=== PATIENT | male | born 1985 | race Caucasian/White ===

== ENCOUNTER 2018-01-26 21:28 | Emergency (ER) | payer BC ==
--- NOTE | 2018-01-26 21:40 | EDM.PDOC ---
ED HPI GENERAL MEDICAL PROBLEM - General Stated Complaint: BAD SUNBURN TO LEGS Time Seen by Provider: 01/26/18 21:40 - History of Present Illness INITIAL COMMENTS - FREE TEXT/NARRATIVE: HISTORY AND PHYSICAL: History of present illness: Patient 33-year-old white male presents with concern of sunburn to his lower extremities he denies any other trauma or concern. Review of systems: As per history of present illness and below otherwise all systems reviewed and negative. Past medical history: As per history of present illness and as reviewed below otherwise noncontributory. Surgical history: As per history of present illness and as reviewed below otherwise noncontributory. Social history: No reported history of drug or alcohol abuse. Family history: As per history of present illness and as reviewed below otherwise noncontributory. Physical exam: HEENT: Atraumatic, normocephalic, pupils reactive, negative for conjunctival pallor or scleral icterus, mucous membranes moist, throat clear, neck supple, nontender, trachea midline. Lungs: Clear to auscultation, breath sounds equal bilaterally, chest nontender. Heart: S1S2, regular, negative for clicks, rubs, or JVD. Abdomen: Soft, nondistended, nontender. Negative for masses or hepatosplenomegaly. Negative for costovertebral tenderness. Pelvis: Stable nontender. Genitourinary: Deferred. Rectal: Deferred. Extremities: Inferior extremities have partial thickness burn anterior aspect bilaterally from his knees down his skin is intact there's small edema this is non-circumferential CMS neurovascular exam is unremarkable Neuro: Awake, alert, oriented. Cranial nerves II through XII unremarkable. Cerebellum unremarkable. Motor and sensory unremarkable throughout. Exam nonfocal. Diagnostics: None Therapeutics: None Impression: #1 sunburn Definitive disposition and diagnosis as appropriate pending reevaluation and review of above. ED ROS GENERAL - Review of Systems Review Of Systems: ROS reveals no pertinent complaints other than HPI. ED EXAM, GENERAL - Physical Exam Exam: See Below (See dictation) Departure - Departure Time of Disposition: 21:39 Disposition: Home, Self-Care 01 Condition: Good Clinical Impression: Sunburn - Discharge Information Referrals: PCP,None [Primary Care Provider] - Additional Instructions: The following information is given to patients seen in the emergency department who are being discharged to home. This information is to outline your options for follow-up care. We provide all patients seen in our emergency department with a follow-up referral. The need for follow-up, as well as the timing and circumstances, are variable depending upon the specifics of your emergency department visit. If you don't have a primary care physician on staff, we will provide you with a referral. We always advise you to contact your personal physician following an emergency department visit to inform them of the circumstance of the visit and for follow-up with them and/or the need for any referrals to a consulting specialist. The emergency department will also refer you to a specialist when appropriate. This referral assures that you have the opportunity for followup care with a specialist. All of these measure are taken in an effort to provide you with optimal care, which includes your followup. Under all circumstances we always encourage you to contact your private physician who remains a resource for coordinating your care. When calling for followup care, please make the office aware that this follow-up is from your recent emergency room visit. If for any reason you are refused follow-up, please contact the [facility] emergency department at and asked to speak to the emergency department charge nurse. [facility] [address] [place] [id number] Motrin/Tylenol directed off work 48 hours follow-up private medical doctor and/ or clinic as needed as discussed and return as needed as discussed
== END 2018-01-26 22:01 | disposition home or self-care (01) ==
LOC: MW.ED 21:28
DX: L55.9 Sunburn, unspecified (principal)
CPT/HCPCS: 99281; 99282

== ENCOUNTER 2019-02-06 16:05 | Emergency (ER) | payer BC ==
--- NOTE | 2019-02-06 16:21 | EDM.PDOC ---
ED HPI GENERAL MEDICAL PROBLEM - General Chief Complaint: General Stated Complaint: ABCESSED TOOTH Time Seen by Provider: 02/06/19 16:21 Source of Information: Reports: Patient - History of Present Illness INITIAL COMMENTS - FREE TEXT/NARRATIVE: HISTORY AND PHYSICAL: History of present illness: [Patient presents with dental pain left upper retromolar, or dentition in general noted, does have some mild to moderate swelling associated around the dentition consistent with early abscess formation No fever nausea vomiting chills sweats no muffled voice drooling or trismus Patient has dentist appointment scheduled for Saturday of next week Review of systems: As per history of present illness and below otherwise all systems reviewed and negative. Past medical history: As per history of present illness and as reviewed below otherwise noncontributory. Surgical history: As per history of present illness and as reviewed below otherwise noncontributory. Social history: No reported history of drug or alcohol abuse. Family history: As per history of present illness and as reviewed below otherwise noncontributory. Physical exam: HEENT: Atraumatic, normocephalic, pupils reactive, negative for conjunctival pallor or scleral icterus, mucous membranes moist, throat clear, neck supple, nontender, trachea midline. Poor dentition noted throughout Lungs: Clear to auscultation, breath sounds equal bilaterally, chest nontender. Heart: S1S2, regular, negative for clicks, rubs, or JVD. Abdomen: Soft, nondistended, nontender. Negative for masses or hepatosplenomegaly. Negative for costovertebral tenderness. Pelvis: Stable nontender. Genitourinary: Deferred. Rectal: Deferred. Extremities: Atraumatic, negative for cords or calf pain. Neurovascular unremarkable. Neuro: Awake, alert, oriented. Cranial nerves II through XII unremarkable. Cerebellum unremarkable. Motor and sensory unremarkable throughout. Exam nonfocal. Diagnostics: [Clinical ] Therapeutics: [Cleocin Dental balls Toradol impression: [ dental abscess ] Definitive disposition and diagnosis as appropriate pending reevaluation and review of above. - Related Data Allergies Allergy/AdvReac Type Severity Reaction Status Date / Time cephalexin [From Keflex] Allergy Anaphylactic Verified 02/06/19 16:26 Shock Home Meds: Home Meds . [No Known Home Meds] 02/06/19 [History] Past Medical History - Past Health History Medical/Surgical History: Denies Medical/Surgical History Social & Family History - Family History Family Medical History: Noncontributory ED ROS GENERAL - Review of Systems Review Of Systems: See Below ED EXAM, GENERAL - Physical Exam Exam: See Below Course - Orders/Labs/Meds Meds: Medications Discontinued Medications Generic Name Dose Route Start Last Admin Trade Name Kody PRN Reason Stop Dose Admin Benzocaine 2 each 02/06/19 16:26 Hurricaine One 20% MUCMEM 02/06/19 16:27 ONETIME ONE Lidocaine HCl 15 ml 02/06/19 16:26 Xylocaine 2% Viscous PO 02/06/19 16:27 ONETIME ONE Departure - Departure Time of Disposition: 16:29 Disposition: Home, Self-Care 01 Condition: Good Clinical Impression: Dental abscess - Discharge Information Referrals: PCP,None [Primary Care Provider] - Forms: ED Department Discharge Additional Instructions: The following information is given to patients seen in the emergency department who are being discharged to home. This information is to outline your options for follow-up care. We provide all patients seen in our emergency department with a follow-up referral. The need for follow-up, as well as the timing and circumstances, are variable depending upon the specifics of your emergency department visit. If you don't have a primary care physician on staff, we will provide you with a referral. We always advise you to contact your personal physician following an emergency department visit to inform them of the circumstance of the visit and for follow-up with them and/or the need for any referrals to a consulting specialist. The emergency department will also refer you to a specialist when appropriate. This referral assures that you have the opportunity for follow-up care with a specialist. All of these measure are taken in an effort to provide you with optimal care, which includes your follow-up. Under all circumstances we always encourage you to contact your private physician who remains a resource for coordinating your care. When calling for follow-up care, please make the office aware that this follow-up is from your recent emergency room visit. If for any reason you are refused follow-up, please contact the [facility] emergency department at and asked to speak to the emergency department charge nurse.
[2019-02-06] MEDS ORDERED: Lidocaine 2% Viscous Solution 15 ML Cup PO ONE (16:26)
[2019-02-06] MEDS ORDERED: Benzocaine 20% Topical Spray UD MUCMEM ONE (16:26)
== END 2019-02-06 16:45 | disposition home or self-care (01) ==
LOC: MW.ED 16:05
DX: K04.7 Periapical abscess without sinus (principal); Z88.1 Allergy status to other antibiotic agents
CPT/HCPCS: 99282; A9270; 99283

== ENCOUNTER 2019-05-28 01:31 | Emergency (ER) | payer BC ==
[2019-05-28] MEDS ORDERED: Tetracaine HCl/PF 0.5% 4 ML Bottle EYEBOTH ONE (01:55)
[2019-05-28] MEDS ORDERED: Ketorolac 60 MG/2 ML SDV IM ONE (01:56)
[2019-05-28] MEDS ORDERED: Ibuprofen 800 MG Tab PO ONE (02:03)
--- NOTE | 2019-05-28 02:03 | EDM.PDOC ---
ED HPI GENERAL MEDICAL PROBLEM - General Chief Complaint: Headache Stated Complaint: PERSISTENT HEADACHE FOR 8 DAYS Time Seen by Provider: 05/28/19 01:40 - History of Present Illness INITIAL COMMENTS - FREE TEXT/NARRATIVE: HISTORY AND PHYSICAL: History of present illness: The patient is a 34-year-old man who presents with complaints of a headache on the left side of his head that starts in his for head and behind his eye and then radiates to the back of his head that has been constant for the last 6 days. He says it started gradually and seems to wax and wane in intensity but is never gone. He has no recent trauma and does not wear glasses or contact lenses. He's had no nausea or vomiting no abdominal pain no chest pain or shortness of breath and he has had some nasal drainage but nothing that he thought was significant nor did he take any [id number] antihistamines. The patient has tried ibuprofen over the last 6 days but his last dose was 2 days ago he says he does not like to take pills. He doesn't have any blurred vision and no neurosensory changes or weakness in his extremities and no neck or back pain. He says he gets headaches once in a while but he is concerned because this has been more consistent and persistent. He has not had any fevers chills coughing and has been eating and drinking normally. The patient says his eyeball itself on the left does not hurt but he feels that there is pressure behind it and in his for head. He has no ear or throat pain. Patient denies any dental pain or swelling of his gums. Review of systems: As per history of present illness and below otherwise all systems reviewed and negative. Past medical history: As per history of present illness and as reviewed below otherwise noncontributory. Surgical history: As per history of present illness and as reviewed below otherwise noncontributory. Social history: No reported history of drug or alcohol abuse. Family history: As per history of present illness and as reviewed below otherwise noncontributory. Physical exam: General: Well-developed well-nourished man who is nontoxic and moves easily in the ED without distress. HEENT: Atraumatic, normocephalic, pupils reactive, left sclera is slightly injected but is not grossly erythematous, EOMs are intact, there is no sinus tenderness or scalp tenderness, negative for conjunctival pallor or scleral icterus, mucous membranes moist, throat clear, neck supple, nontender, trachea midline. TMs are dulled bilaterally and difficult to see due to impacted cerumen , there is no gross engorgement of the turbinates nor any sinus tenderness, there is no TMJ or temporal artery tenderness, there is some mild tenderness of the cervical paraspinals on the left side but no occipital groove tenderness on palpation. There is no cervical adenopathy or nuchal rigidity Lungs: Clear to auscultation, breath sounds equal bilaterally, chest nontender. Heart: S1S2, regular, negative for clicks, rubs, or JVD. Abdomen: Soft, nondistended, nontender. Negative for masses or hepatosplenomegaly. Negative for costovertebral tenderness. Pelvis: Stable nontender. Genitourinary: Deferred. Rectal: Deferred. Extremities: Atraumatic, negative for cords or calf pain. Neurovascular unremarkable. Neuro: Awake, alert, oriented. Cranial nerves II through XII unremarkable. Cerebellum unremarkable. Motor and sensory unremarkable throughout. Exam nonfocal. Diagnostics: CBC CMP sedimentation rate CRP CT scan of the head, visual acuity IOP please see below procedure note Visual acuity per nursing was 20/30 in the right eye 20/20 in the left eye and 20/20 in both eyes Therapeutics: Tetracaine for intraocular pressure, Toradol was ordered but patient does not want a shot so ibuprofen was given Procedure note: After tetracaine was instilled by nursing procedure was explained to the patient and intraocular pressure was measured in both eyes. The pressure and the unaffected right eye is 13 and the pressure in the affected left eye was also 13. There were no complications and the patient tolerated the procedure well Patient says his headache is mildly improved and he is aware of all testing results. I've advised that he needs to call and follow-up with our director of estate for formal eye exam and also with primary care to investigate these headaches a bit more and to get advice for treatment going forward. Impression: Persistent headache Definitive disposition and diagnosis as appropriate pending reevaluation and review of above. headache Pain Score (Numeric/FACES): 8 - Related Data Allergies Allergy/AdvReac Type Severity Reaction Status Date / Time cephalexin [From Keflex] Allergy Anaphylactic Verified 05/28/19 01:42 Shock Home Meds: Home Meds . [No Known Home Meds] 02/06/19 [History] Past Medical History - Past Health History Medical/Surgical History: Denies Medical/Surgical History HEENT History: Reports: None Cardiovascular History: Reports: None Respiratory History: Reports: None Gastrointestinal History: Reports: None Genitourinary History: Reports: None Musculoskeletal History: Reports: None Neurological History: Reports: None Psychiatric History: Reports: None Endocrine/Metabolic History: Reports: None Insulin Pump Model and Animal Shelter Manager: None Hematologic History: Reports: None Immunologic History: Reports: None Oncologic (Cancer) History: Reports: None Dermatologic History: Reports: None - Infectious Disease History Infectious Disease History: Reports: None - Past Surgical History GI Surgical History: Reports: Appendectomy Male Surgical History: Reports: None Musculoskeletal Surgical History: Reports: Other (See Below) Other Musculoskeletal Surgeries/Procedures:: R tibia surgery Social & Family History - Family History Family Medical History: Noncontributory - Tobacco Use Smoking Status *Q: Current Every Day Smoker Years of Tobacco use: 20 Packs/Tins Daily: 0.5 - Caffeine Use Caffeine Use: Reports: Coffee, Soda - Recreational Drug Use Recreational Drug Use: No ED ROS GENERAL - Review of Systems Review Of Systems: ROS reveals no pertinent complaints other than HPI. ED EXAM, GENERAL - Physical Exam Exam: See Below (See dictation) Course - Vital Signs Last Recorded V/S: Last Vital Signs Temp 36.1 C 05/28/19 01:42 Pulse 78 05/28/19 01:42 Resp 18 05/28/19 01:42 BP 116/75 05/28/19 01:42 Pulse Ox 98 05/28/19 01:42 - Orders/Labs/Meds Orders: Active Orders 24 hr Category Date Time Status Communication Order [RC] STAT Care 05/28/19 01:43 Active Labs: Laboratory Tests 05/28/19 05/28/19 Range/Units 02:05 02:05 WBC 8.68 (4.0-11.0) K/uL RBC 5.02 (4.50-5.90) M/uL Hgb 15.8 (13.0-17.0) g/dL Hct 44.6 (38.0-50.0) % MCV 88.8 (80.0-98.0) fL MCH 31.5 (27.0-32.0) pg MCHC 35.4 (31.0-37.0) g/dL RDW Std Deviation 39.5 (28.0-62.0) fl RDW Coeff of Joseluis 12 (11.0-15.0) % Plt Count 181 (150-400) K/uL MPV 9.80 (7.40-12.00) fL Neut % (Auto) 60.2 (48.0-80.0) % Lymph % (Auto) 25.1 (16.0-40.0) % Parke % (Auto) 10.9 (0.0-15.0) % Eos % (Auto) 3.7 (0.0-7.0) % Baso % (Auto) 0.1 (0.0-1.5) % Neut # (Auto) 5.2 (1.4-5.7) K/uL Lymph # (Auto) 2.2 (0.6-2.4) K/uL Parke # (Auto) 1.0 H (0.0-0.8) K/uL Eos # (Auto) 0.3 (0.0-0.7) K/uL Baso # (Auto) 0.0 (0.0-0.1) K/uL Nucleated RBC % 0.0 /100WBC Nucleated RBCs # 0 K/uL ESR 1 (0-14) mm/hr Sodium 140 (136-148) mmol/L Potassium 3.5 (3.5-5.1) mmol/L Chloride 104 (98-107) mmol/L Carbon Dioxide 26.4 (21.0-32.0) mmol/L BUN 17 (7.0-18.0) mg/dL Creatinine 1.2 (0.8-1.3) mg/dL Est Cr Clr Drug Dosing 90.71 mL/min Estimated GFR (MDRD) > 60.0 ml/min Glucose 127 H (74-106) mg/dL Calcium 8.7 (8.5-10.1) mg/dL Total Bilirubin 0.5 (0.2-1.0) mg/dL AST 27 (15-37) IU/L ALT 28 (14-63) IU/L Alkaline Phosphatase 75 (46-116) U/L C-Reactive Protein < 0.20 (0.00-0.90) mg/dL Total Protein 7.3 (6.4-8.2) g/dL Albumin 4.0 (3.4-5.0) g/dL Globulin 3.3 (2.6-4.0) g/dL Albumin/Globulin Ratio 1.2 (0.9-1.6) Meds: Medications Discontinued Medications Generic Name Dose Route Start Last Admin Trade Name Kody PRN Reason Stop Dose Admin Ibuprofen 800 mg 05/28/19 02:03 05/28/19 02:12 Motrin PO 05/28/19 02:04 800 mg ONETIME ONE Administration Ketorolac Tromethamine 60 mg 05/28/19 01:56 05/28/19 02:13 Toradol IM 05/28/19 01:57 Not Given ONETIME ONE Tetracaine HCl 1 ml 05/28/19 01:55 05/28/19 02:15 Tetracaine 0.5% Steri-Unit Lillian EYEBOTH 05/28/19 01:56 1 ml ASDIRECTED ONE Administration Departure - Departure Time of Disposition: 02:58 Disposition: Home, Self-Care 01 Condition: Good Clinical Impression: New daily persistent headache - Discharge Information Referrals: PCP,None [Primary Care Provider] - Forms: ED Department Discharge Additional Instructions: The following information is given to patients seen in the emergency department who are being discharged to home. This information is to outline your options for follow-up care. We provide all patients seen in our emergency department with a follow-up referral. The need for follow-up, as well as the timing and circumstances, are variable depending upon the specifics of your emergency department visit. If you don't have a primary care physician on staff, we will provide you with a referral. We always advise you to contact your personal physician following an emergency department visit to inform them of the circumstance of the visit and for follow-up with them and/or the need for any referrals to a consulting specialist. The emergency department will also refer you to a specialist when appropriate. This referral assures that you have the opportunity for followup care with a specialist. All of these measure are taken in an effort to provide you with optimal care, which includes your followup. Under all circumstances we always encourage you to contact your private physician who remains a resource for coordinating your care. When calling for followup care, please make the office aware that this follow-up is from your recent emergency room visit. If for any reason you are refused follow-up, please contact the [facility] emergency department at and ask to speak to the emergency department charge nurse. [facility]--ophthalmology [address] [place] [address] [facility] Primary care- Internal Medicine and Family [place] [id number] [place] [id number] Please call and connect with primary care as well as our ophthalmology clinic for appointments for follow-up trying to get in with the director of estate before the end of the week. Use [id number] ibuprofen 800 mg every 8 hours. Add [id number] Tylenol as he choose for your headache pain. Apply a sore heat to your neck in the muscles of the back of your head for symptomatic relief. Use the tramadol/Voltaren you have been given from [facility] Meds only when you're at home to help rest. Try to start keeping a headache journal writing down when the headache is worse when it is better and circumstances around that touches time of day or other stressors. Return to ER as needed and as discussed - My Orders Last 24 Hours: My Active Orders 05/28/19 01:43 Communication Order [RC] STAT - Assessment/Plan Last 24 Hours: My Active Orders 05/28/19 01:43 Communication Order [RC] STAT
--- NOTE | 2019-05-28 02:23 | CT ---
INDICATION: Left retro ocular headache for about a week TECHNIQUE: CT head without contrast. COMPARISON: None FINDINGS: CSF spaces: Within normal limits for age. Brain parenchyma: The nair-white differentiation is normal. No sign of mass, hemorrhage, or midline shift. Skull base and calvarium: The visualized paranasal sinuses and mastoid air cells demonstrate no acute or significant findings. The visualized orbits are grossly unremarkable. No skull fractures. IMPRESSION: Unremarkable noncontrast head CT. Please note that all CT scans at this facility use dose modulation, iterative reconstruction, and/or weight-based dosing when appropriate to reduce radiation dose to as low as reasonably achievable. Dictated by Oksana Koo MD @ May 28 2019 2:21AM Signed by Dr. Oksana Koo @ May 28 2019 2:22AM
[2019-05-28 02:31] LABS: BLOOD UREA NITROGEN,BUN 17 mg/dL (7.0-18.0); CARBON DIOXIDE,CO2 26.4 mmol/L (21.0-32.0); CHLORIDE,CL 104 mmol/L (98-107); GLUCOSE RANDOM 127 mg/dL (74-106); POTASSIUM,K 3.5 mmol/L (3.5-5.1); SODIUM,NA 140 mmol/L (136-148)
== END 2019-05-28 03:09 | disposition home or self-care (01) ==
LOC: MW.ED 01:31
DX: R51 Headache (principal); F17.210 Nicotine dependence, cigarettes, uncomplicated; Z88.1 Allergy status to other antibiotic agents
CPT/HCPCS: 36415; 70450; 80053; 85025; 85652; 86140; 99284; A9270

== ENCOUNTER 2020-11-30 07:58 | Emergency (ER) | payer BC, OTHER ==
--- NOTE | 2020-11-30 08:20 | EDM.PDOC ---
ED HPI GENERAL MEDICAL PROBLEM - General Chief Complaint: Laceration Stated Complaint: LEFT WRIST INJURY Time Seen by Provider: 11/30/20 08:11 Source of Information: Reports: Patient History Limitations: Reports: No Limitations - History of Present Illness INITIAL COMMENTS - FREE TEXT/NARRATIVE: Patient is a 35-year-old male who presents today for laceration to his left wrist. Patient is he was working with a will at work when it lost off his tractor and cut his wrist. Patient states no fragments or loss from will. Patient is able to move his wrist completely has no numbness weakness to his hand. Patient states there were some bleeding that since pain control. Patient dates that he is feeling, woozy at the scene out of blood pressure feels back to baseline currently. laceration leftwrist Pain Score (Numeric/FACES): 7 - Related Data Allergies Allergy/AdvReac Type Severity Reaction Status Date / Time cephalexin [From Keflex] Allergy Anaphylactic Verified 05/28/19 01:42 Shock Home Meds: Home Meds . 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 Hematologic History: Reports: None Immunologic History: Reports: None Oncologic (Cancer) History: Reports: None Dermatologic History: Reports: None - Infectious Disease History Infectious Disease History: Reports: None - Past Surgical History GI Surgical History: Reports: Appendectomy Male Surgical History: Reports: None Musculoskeletal Surgical History: Reports: Other (See Below) Other Musculoskeletal Surgeries/Procedures:: R tibia surgery Social & Family History - Family History Family Medical History: No Pertinent Family History - Caffeine Use Caffeine Use: Reports: Coffee, Soda ED ROS GENERAL - Review of Systems Review Of Systems: See Below Constitutional: Reports: No Symptoms HEENT: Reports: No Symptoms Respiratory: Reports: No Symptoms Cardiovascular: Reports: No Symptoms Endocrine: Reports: No Symptoms GI/Abdominal: Reports: No Symptoms : Reports: No Symptoms Musculoskeletal: Reports: No Symptoms Skin: Reports: Other (laceration) Neurological: Reports: No Symptoms Psychiatric: Reports: No Symptoms Hematologic/Lymphatic: Reports: No Symptoms Immunologic: Reports: No Symptoms ED EXAM, SKIN/RASH Exam: See Below Exam Limited By: No Limitations General Appearance: Alert, WD/WN Head: Atraumatic, Normocephalic Respiratory/Chest: No Respiratory Distress, Lungs Clear Cardiovascular: Normal Peripheral Pulses, Regular Rate, Rhythm Peripheral Pulses: 2+: Radial (L), Radial (R) Extremities: Normal Range of Motion, Non-Tender, Other (3cm lac to left wrist volar side) Neurological: Alert, Oriented, Normal Cognition, Normal Gait ED SKIN PROCEDURES - Laceration/Wound Repair Left Wrist Appearance: Superficial Distal NVT: Neuro & Vascular Intact Anesthetic Type: Local Local Anesthesia - Lidocaine (Xylocaine): 1% Plain Local Anesthetic Volume: 4cc Skin Prep: Chlorhexidine (Hibiciens) Saline Irrigation (cc's): 1,000 Closed with: Sutures Lac/Wound length In cm: 3 Suture Size: 4-0 Sterile Dressing Applied: Provider Tetanus Status Addressed: Yes Course - Vital Signs Last Recorded V/S: Last Vital Signs Temp 96 F L 11/30/20 08:17 Pulse 98 11/30/20 08:17 Resp 16 11/30/20 08:17 BP 98/44 L 11/30/20 08:17 Pulse Ox 97 11/30/20 08:17 - Orders/Labs/Meds Meds: Medications Discontinued Medications Generic Name Dose Route Start Last Admin Trade Name Kody PRN Reason Stop Dose Admin Lidocaine HCl 5 ml 11/30/20 08:17 11/30/20 08:26 Lidocaine 1% 5 Ml Sdv INJECT 11/30/20 08:18 5 ml ONETIME ONE Administration Departure - Departure Time of Disposition: 09:37 Disposition: Home, Self-Care 01 Condition: Good Clinical Impression: Laceration of wrist - Discharge Information *PRESCRIPTION DRUG MONITORING PROGRAM REVIEWED*: Not Applicable *COPY OF PRESCRIPTION DRUG MONITORING REPORT IN PATIENT PARTHA: Not Applicable Instructions: Laceration Care, Adult, [id number] Referrals: PCP,None [Primary Care Provider] - Forms: ED Department Discharge Additional Instructions: The following information is given to patients seen in the emergency department who are being discharged to home. This information is to outline your options for follow-up care. We provide all patients seen in our emergency department with a follow-up referral. The need for follow-up, as well as the timing and circumstances, are variable depending upon the specifics of your emergency department visit. If you don't have a primary care physician on staff, we will provide you with a referral. We always advise you to contact your personal physician following an emergency department visit to inform them of the circumstance of the visit and for follow-up with them and/or the need for any referrals to a consulting specialist. The emergency department will also refer you to a specialist when appropriate. This referral assures that you have the opportunity for follow-up care with a specialist. All of these measure are taken in an effort to provide you with optimal care, which includes your follow-up. Under all circumstances we always encourage you to contact your private physician who remains a resource for coordinating your care. When calling for follow-up care, please make the office aware that this follow-up is from your recent emergency room visit. If for any reason you are refused follow-up, please contact the [facility] Emergency Department at and asked to speak to the emergency department charge nurse. Please follow up with your primary care physician. If you do not have a primary care physician, see below: [facility] [address] [place] [id number] [facility] [address] [place] [id number] You are seen today for laceration to your left wrist. We repaired the laceration with sutures. Recommend you follow-up in the next 7 to 10 days to have the sutures removed. Follow-up your primary care physician. If you cannot find anyone to remove them you can come to the ER to have the sutures removed. Recheck information about how to care for the sutures. If you have any redness drainage to the area please return to the ED immediately. Sepsis Event Note (ED) - Focused Exam Vital Signs: Vital Signs Temp Pulse Resp BP Pulse Ox 11/30/20 08:17 96 F L 98 16 98/44 L 97 - Assessment/Plan Plan: Patient is a 35-year-old male presents today for laceration to his left wrist. Will repair lacerations with sutures and reassess patient.
[2020-11-30] MEDS ORDERED: Bacitracin Oint 1 GM U/D Packet TOP ONE (10:00)
== END 2020-11-30 10:08 | disposition home or self-care (01) ==
LOC: MW.ED 07:58
DX: S61.512A Laceration without foreign body of left wrist, initial encounter (principal); Z88.1 Allergy status to other antibiotic agents; W26.8XXA Contact with other sharp object(s), not elsewhere classified, initial encounter; Y99.0 Civilian activity done for income or pay
CPT/HCPCS: 12002; 99282; 99282-25

== ENCOUNTER 2021-06-11 18:48 | Emergency (ER) | payer OTHER ==
--- NOTE | 2021-06-11 20:35 | EDM.PDOC ---
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 The patient states that his MRI states that 10 T10-T12 has degenerative disc disease. He states that his lumbar MRI showed some bulging disc. The patient is concerned that there has been more injury. While sitting on the cot the patient states that his left mid dorsum foot was numb. Patient denies any fever, chills, headache, change in vision, s yncope or near syncope. Denies any chest pain, shortness of breath or cough. Denies any abdominal pain, nausea, vomiting, diarrhea, constipation or dysuria. Has not noted any blood in urine or stool. Patient has been eating and drinking appropriately. Review of systems: As per history of present illness and below otherwise all systems reviewed and negative. Past medical history: As per history of present illness and as reviewed below otherwise noncontributory. Surgical history: As per history of present illness and as reviewed below otherwise noncontributory. Social history: See social history for further information Family history: As per history of present illness and as reviewed below otherwise noncontributory. Physical exam: General: Well developed and well nourished. Alert and orientated x 3. Nontoxic in appearance and in no acute distress. Vital signs are stable and have been reviewed by me. Nursing notes were reviewed. HEENT: Atraumatic, normocephalic, pupils equal and reactive bilaterally, negative for conjunctival pallor or scleral icterus, mucous membranes moist, TMs normal bilaterally, throat clear, neck supple, nontender, trachea midline. No drooling or trismus noted. No meningeal signs. No hot potato voice noted. Lungs: Clear to auscultation bilaterally. No wheezes, rales, or rhonchi. Chest nontender. Normal work of breathing, no accessory muscles used. Heart: S1S2, regular rate and rhythm without overt murmur, gallops, or rubs. No JVD. No peripheral edema Abdomen: Soft, nondistended, nontender. Normoactive bowel sounds. Negative for masses or costovertebral tenderness. Skin: Intact, warm, dry. No lesions or rashes noted. Hematologic: No petechiae or purpra. Mucosa appropriate color and normal nail bed color and refill. Extremities: Atraumatic, moves all extremities per self without difficulty or deficits, negative for cords or calf pain. Neurovascular unremarkable. Back exam: Neck and back have no deformities, external skin changes, or signs of trauma. Curvature of the cervical, thoracic, and lumbar spine are within normal limits. Bony features of the shoulders and hips are of equal height bilaterally. Tenderness is noted on palpation of the lower lumbar spinous processes.Straight leg raise test is negative bilaterally. No clonus is noted. 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 Dorsi/plantar flexion is normal bilaterally. Neuro: Awake, alert, oriented. Cranial nerves II through XII unremarkable. Cerebellum unremarkable. Motor and sensory unremarkable throughout. Exam nonfocal. Psychiatric: Mood and affect are appropriate. Normal thought process. Answering questions appropriately. Notes: *This patient was seen and evaluated during the 2019 SARS-CoV-2 novel coronavirus pandemic period. Community viral transmission is ongoing at time of this encounter and the emergency department is operating under pandemic response procedures. Stated above the patient is a 36-year-old male with a history of chronic back pain with a history of degenerative disease and bulging disc. The patient was bending over today and started experiencing some extreme low back pain. The patient is requesting an x-ray to ensure there is nothing else wrong. I have ordered an x-ray. Lumbar x-ray Impression 1 mild L4/L5 degenerative disc disease. 2 possible L5 pars defects. This is much like his MRI done previously. I have informed the patient and instructed that he need to follow-up with his orthopedic surgeon. I have prescribed Valium 5 mg 3 times daily as needed for muscle spasms for 5 days. I have also prescribed prednisone 60 mg daily for 5 days. I have talked with the patient about today's findings, in addition to providing specific details for plan of care. Reassessment at the time of disposition demonstrates that the patient is in no acute distress. The patient is stable for discharge, counseling was provided and we discussed in great detail signs and symptoms that would prompt them to return to the Emergency Department. Medication, follow up and supportive care measures were reviewed and discussed. Voices understanding and is agreeable to plan of care. Denies any further questions or concerns at this time. Diagnostics: Lumbar x-ray Therapeutics: Valium 5 mg, prednisone 60 mg Prescription: Valium 5 mg p.o. 3 times daily for 5 days, prednisone 60 mg p.o. for 5 days Impression: Lumbar back pain Plan: 1. You were evaluated today on an emergent basis. Your plaints of lower back pain that became worse today after bending over was evaluated with an lower back x-ray which did not show any changes from your previous MRI. You need to follow-up with your orthopedic surgeon, primary care and pain physician. For today's purposes I have prescribed you Valium 5 mg by mouth 3 times a day as needed for muscle spasms for 5 days. I have also prescribed you prednisone which is a steroid 60 mg daily for 5 days. This should help alleviate the large majority of your pain. 2. You can alternate Tylenol and ibuprofen as needed for pain and fever management. 3. We encourage you to follow up with your primary care provider and/or recommended specialist in the next few days for re-evaluation and further care/ management. 4. If your symptoms should worsen, new symptoms develop or any of the signs and symptoms we discussed should arise please return to the emergency room or call 911 (if needed). Definitive disposition and diagnosis as appropriate pending reevaluation and review of above. Back Pain Score (Numeric/FACES): 9 - Related Data Allergies Allergy/AdvReac Type Severity Reaction Status Date / Time cephalexin [From Keflex] Allergy Anaphylactic Verified 05/28/19 01:42 Shock Home Meds: Home Meds diazePAM [Valium] 5 mg PO TID PRN 5 Days #15 tablet 06/11/21 [Rx] predniSONE [Prednisone] 60 mg PO DAILY 5 Days #15 tablet 06/11/21 [Rx] Past Medical History - Past Health History Medical/Surgical History: Denies Medical/Surgical History HEENT History: Reports: None Cardiovascular History: Reports: None Respiratory History: Reports: None Gastrointestinal History: Reports: None Genitourinary History: Reports: None Musculoskeletal History: Reports: None Neurological History: Reports: None Psychiatric History: Reports: None Endocrine/Metabolic History: Reports: None 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 Hematologic History: Reports: None Immunologic History: Reports: None Oncologic (Cancer) History: Reports: None Dermatologic History: Reports: None - Infectious Disease History Infectious Disease History: Reports: None - Past Surgical History GI Surgical History: Reports: Appendectomy Male Surgical History: Reports: None Musculoskeletal Surgical History: Reports: Other (See Below) Other Musculoskeletal Surgeries/Procedures:: R tibia surgery Social & Family History - Family History Family Medical History: No Pertinent Family History - Tobacco Use Second Hand Smoke Exposure: No - Caffeine Use Caffeine Use: Reports: None - Recreational Drug Use Recreational Drug Use: No ED ROS GENERAL - Review of Systems Review Of Systems: Comprehensive ROS is negative, except as noted in HPI. ED EXAM,LOWER BACK PAIN/INJURY - Physical Exam Exam: See Below (See dictation) Course - Vital Signs Last Recorded V/S: Last Vital Signs Temp 98.1 F 06/11/21 19:30 Pulse 72 06/11/21 22:00 Resp 18 06/11/21 22:00 BP 110/60 06/11/21 22:00 Pulse Ox 97 06/11/21 22:00 - Orders/Labs/Meds Meds: Medications Discontinued Medications Generic Name Dose Route Start Last Admin Trade Name Freq PRN Reason Stop Dose Admin Diazepam 5 mg 06/11/21 21:37 06/11/21 21:58 Diazepam 5 Mg Tab PO 06/11/21 21:38 5 mg ONETIME ONE Administration Prednisone 60 mg 06/11/21 21:37 06/11/21 21:58 Prednisone 20 Mg Tab PO 06/11/21 21:38 60 mg ONETIME ONE Administration Departure - Departure Time of Disposition: 21:43 Disposition: Home, Self-Care 01 Condition: Good Clinical Impression: Lumbar back pain - Discharge Information *PRESCRIPTION DRUG MONITORING PROGRAM REVIEWED*: Not Applicable *COPY OF PRESCRIPTION DRUG MONITORING REPORT IN PATIENT PARTHA: Not Applicable Prescriptions: predniSONE [Prednisone] 60 mg PO DAILY 5 Days #15 tablet diazePAM [Valium] 5 mg PO TID PRN 5 Days #15 tablet PRN Reason: Spasms Instructions: Chronic Back Pain, [id number] Referrals: Jordy De Jesus MD [Primary Care Provider] - Forms: ED Department Discharge Additional Instructions: The following information is given to patients seen in the emergency department who are being discharged to home. This information is to outline your options for follow-up care. We provide all patients seen in our emergency department with a follow-up referral. The need for follow-up, as well as the timing and circumstances, are variable depending upon the specifics of your emergency department visit. If you don't have a primary care physician on staff, we will provide you with a referral. We always advise you to contact your personal physician following an emergency department visit to inform them of the circumstance of the visit and for follow-up with them and/or the need for any referrals to a consulting specialist. The emergency department will also refer you to a specialist when appropriate. This referral assures that you have the opportunity for follow-up care with a specialist. All of these measure are taken in an effort to provide you with optimal care, which includes your follow-up. Under all circumstances we always encourage you to contact your private physician who remains a resource for coordinating your care. When calling for follow-up care, please make the office aware that this follow-up is from your recent emergency room visit. If for any reason you are refused follow-up, please contact the [facility] Emergency Department at and asked to speak to the emergency department charge nurse. [facility] [address] [place] [address] [address] Plan: 1. You were evaluated today on an emergent basis. Your plaints of lower back pain that became worse today after bending over was evaluated with an lower back x-ray which did not show any changes from your previous MRI. You need to follow-up with your orthopedic surgeon, primary care and pain physician. For today's purposes I have prescribed you Valium 5 mg by mouth 3 times a day as needed for muscle spasms for 5 days. I have also prescribed you prednisone which is a steroid 60 mg daily for 5 days. This should help alleviate the large majority of your pain. 2. You can alternate Tylenol and ibuprofen as needed for pain and fever management. 3. We encourage you to follow up with your primary care provider and/or recommended specialist in the next few days for re-evaluation and further car e/management. 4. If your symptoms should worsen, new symptoms develop or any of the signs and symptoms we discussed should arise please return to the emergency room or call 911 (if needed). Sepsis Event Note (ED) - Evaluation Sepsis Screening Result: No Definite Risk
--- NOTE | 2021-06-11 21:32 | CR ---
INDICATION: Pain. TECHNIQUE: Lumbar spine radiographs, 2 views. COMPARISON: None available. FINDINGS: Normal alignment. The lumbar vertebral body heights are maintained. Possible L5 pars defects. Mild L4-L5 degenerative disc disease. No focal soft tissue abnormality. IMPRESSION: 1. Mild L4-L5 degenerative disc disease. 2. Possible L5 pars defects. Dictated by Zachary Koo MD @ 06/11/2021 9:22:37 PM Dictated by: Zachary Koo MD @ 06/11/2021 21:30:49 (Electronically Signed)
[2021-06-11] MEDS ORDERED: Diazepam 5 MG Tab PO ONE (21:37)
[2021-06-11] MEDS ORDERED: predniSONE 20 MG Tab PO ONE (21:37)
== END 2021-06-11 22:08 | disposition home or self-care (01) ==
LOC: MW.ED 18:48
DX: M54.50 Low back pain, unspecified (principal); Z88.1 Allergy status to other antibiotic agents
CPT/HCPCS: 72100; 99283; A9270; 99284

== ENCOUNTER 2022-09-06 19:14 | Emergency (ER) | payer OTHER | END 2022-09-06 21:33 | disposition home or self-care (01) | LOC: MW.ED 19:14 | DX: M79.671 Pain in right foot (principal); Z88.1 Allergy status to other antibiotic agents; Z88.8 Allergy status to other drugs, medicaments and biological substances; Z90.49 Acquired absence of other specified parts of digestive tract | CPT/HCPCS: 73630-26-RT; 73630-RT; 99283 ==

== ENCOUNTER 2022-09-15 10:00 | Emergency (ER) | payer OTHER ==
[2022-09-15] MEDS ORDERED: Lidocaine 1% 5 ML VIAL INJECT STA (10:54)
[2022-09-15] MEDS ORDERED: Lidocaine 1% 5 ML VIAL ONE (11:20)
== END 2022-09-15 12:05 | disposition home or self-care (01) ==
LOC: MW.ED 10:00
DX: S61.211A Laceration without foreign body of left index finger without damage to nail, initial encounter (principal); Z88.1 Allergy status to other antibiotic agents; Z88.8 Allergy status to other drugs, medicaments and biological substances; Z79.899 Other long term (current) drug therapy; Z90.49 Acquired absence of other specified parts of digestive tract; Z72.0 Tobacco use; W31.2XXA Contact with powered woodworking and forming machines, initial encounter
CPT/HCPCS: 12002; 99282; J3490